=== PATIENT | female | born 1945 | race Caucasian/White ===

== ENCOUNTER → 2019-05-30 12:09 | Outpatient (CLI) | payer MEDICARE, MEDICAID, SELFPAY ==
--- NOTE | 2019-05-30 12:22 | RAD_ITS ---
STUDY: X-RAY - RIGHT KNEE REASON FOR EXAM: Increasing bilateral knee pain for years. TECHNIQUE: 4 view(s) of the knee. COMPARISON: None. FINDINGS: There is osteopenia. Normal visualized distal femur. Normal visualized proximal tibia and fibula. Normal proximal tibiofibular articulation. There is moderate joint space narrowing of the medial femorotibial compartment. There is moderately severe joint space narrowing of the lateral femorotibial compartment. There are marginal osteophytes and severe joint space narrowing of the patellofemoral articulation. There is vascular calcification. RAD/Knee 4 or More Views IMPRESSION: Tricompartmental arthrosis. Electronically Signed: Reed Miller MD at 12:53 EDT Tel , Service support ,
--- NOTE | 2019-05-30 12:23 | RAD_ITS ---
STUDY: X-RAY - LEFT KNEE REASON FOR EXAM: Increasing bilateral knee pain for years. TECHNIQUE: 4 view(s) of the knee. COMPARISON: None. FINDINGS: There is osteopenia. Normal visualized distal femur. Normal visualized proximal tibia and fibula. Normal proximal tibiofibular articulation. There is severe joint space narrowing of the medial femorotibial compartment. There is moderate joint space narrowing of the lateral femorotibial compartment. There are marginal osteophytes and severe joint space narrowing of the patellofemoral articulation. There is vascular calcification. RAD/Knee 4 or More Views IMPRESSION: Tricompartmental arthrosis. Electronically Signed: Reed Miller MD at 12:52 EDT Tel , Service support ,
== END ==
PROVIDERS: Family Provider Internal Medicine; Referring Provider Internal Medicine; Visit Provider Internal Medicine
DX: M25.561 Pain in right knee (principal); M25.562 Pain in left knee; G89.29 Other chronic pain
CPT/HCPCS: 73564

== ENCOUNTER → 2019-06-25 09:45 | Outpatient (CLI) | payer MEDICARE, SELFPAY ==
[2019-06-25 09:55] VITALS: BP 168/100; PULSE 87; RESP 18; O2SAT 18
--- NOTE | 2019-06-25 09:55 | CT_ITS ---
STUDY: CARDIAC CALCIUM SCORING - CT CHEST REASON FOR EXAM: Female, 73 years old. HLD. Family history of aneurysm. RADIATION DOSAGE (If Supplied By Facility): CTDIvol = ( 12.19 ) mGy, DLP = ( 292.55 ) mGycm TECHNIQUE: Axial non-enhanced images were acquired through the heart for the sole purpose of measuring coronary artery calcium. Individualized dose optimization techniques were used for this CT. COMPARISON: None. FINDINGS: This portion of the report is being generated solely for the evaluation of noncoronary artery structures which have been assessed on plain another report. The lungs are well expanded. There is no focal mass or infiltrate. The heart is normal in size. Normal pericardium. There coronary artery calcifications. Normal visualized mediastinum and aida. Normal visualized pulmonary arteries. There is atherosclerotic changes of the visualized thoracic aorta with mild tortuosity. There is no aneurysm. There are degenerative changes of the thoracic spine. Normal visualized upper abdomen. There is a question of a small type I hiatal hernia. CT/Limited Chest CT w/CCTA IMPRESSION: 1. Atherosclerotic changes of coronary arteries and thoracic aorta. 2. Question hiatal hernia. Electronically Signed: Tee Garcia DO at 17:22 EDT Tel [phone], Service support ,
--- NOTE | 2019-06-25 10:13 | US_ITS ---
PROCEDURES: ULTRASOUND AORTA REASON FOR EXAM: Female, 73 years old. Family history of dissecting aortic aneurysm. TECHNIQUE: Ultrasound evaluation of the aorta was performed with real-time and static rutledge-scale imaging. COMPARISON: None. FINDINGS: There is minimal plaque seen in the distal aorta. Aorta measures: Proximal 2.8 cm. Middle 2.4 cm. Distal 2.4 cm. Aorta measure transversely: Proximal 2.8 cm. Middle 2.4 cm. Distal 2.4 cm. There is normal color flow and waveform with normal velocity. Right iliac artery measures: 1.0 cm. Right iliac artery measure transversely: 1.3 cm. Left iliac artery measures: 0 point cm. Left iliac artery measure transversely: 1.3 cm. There is no demonstrated aneurysm.. US/US ABD AORTA SCREEN/AAA IMPRESSION: Mild atherosclerotic changes of the aorta without aneurysm or dissection. Electronically Signed: Tee Garcia DO at 18:28 EDT Tel [phone], Service support ,
--- NOTE | 2019-06-28 14:30 | CA.SCORE ---
Calcium Scoring Date of Study:: 06/25/19 Coronary Calcium Scoring: High-resolution Computed Tomographic imaging of the chest was performed on [ ], with particular attention paid to the coronary arteries. Images from the examination were analyzed for the presence and extent of coronary artery calcification , using coronary calcium quantification software. The patient tolerated the procedure well and there were no complications. The results of the coronary calcification analysis are provided below. - Findings Left Main (LM): 62.6 Left Anterior Descending (LAD): 230 Left Circumflex (LCX): 85.8 Right Coronary Artery (RCA): 0 Total Agatston Score: 378.4 Percentile Rankin Calcium Scoring Interpretation: 101-400 Moderate plaque burden Moderate non-obstructive coronary artery disease highly likely.
== END ==
PROVIDERS: Family Provider Internal Medicine; PCP Internal Medicine; Referring Provider Internal Medicine; Visit Provider Internal Medicine
DX: Z13.9 Encounter for screening, unspecified (principal); Z82.49 Family history of ischemic heart disease and other diseases of the circulatory system
CPT/HCPCS: 75571; 76380; 76706

== ENCOUNTER → 2019-07-11 06:27 | Outpatient (CLI) | payer MEDICARE, SELFPAY | PROVIDERS: Family Provider Internal Medicine; PCP Internal Medicine; Referring Provider Internal Medicine; Visit Provider Internal Medicine | DX: I25.10 Atherosclerotic heart disease of native coronary artery without angina pectoris (principal); R06.02 Shortness of breath; R94.30 Abnormal result of cardiovascular function study, unspecified | CPT/HCPCS: 78452; 93017; A9500; A4216; J2785 ==

== ENCOUNTER 2019-07-11 08:17 | Emergency (ER) | payer MEDICARE, SELFPAY ==
[2019-07-11 08:19] VITALS: BP 163/84; PULSE 59; RESP 12; TEMP 36.7; O2SAT 97; BMI 41.0
--- NOTE | 2019-07-11 08:44 | EKG12_ITS ---
Test Reason : PALPITATIONS Blood Pressure : / mmHG Vent. Rate : 153 BPM Atrial Rate : 375 BPM P-R Int : 000 ms QRS Dur : 080 ms QT Int : 316 ms P-R-T Axes : 000 -04 075 degrees QTc Int : 504 ms Atrial fibrillation with rapid ventricular response Nonspecific ST and T wave abnormality Abnormal ECG Confirmed by DEVONTE KENDALL, MAUREEN ([id number]), editor sound TERESO MARIO ([id number]) on 07/13/2019 10:24:52 A M Referred By: YENY/PRABHU Confirmed By:DALE WHITNEY MD
--- NOTE | 2019-07-11 08:44 | RAD_ITS ---
STUDY: X-RAY CHEST REASON FOR EXAM: Female, 74 years old. Chest pain. Hypertension. TECHNIQUE: Single AP portable view of the chest. COMPARISON: None. FINDINGS: EKG electrodes are seen. Surgical clips are seen in the right axillary region. The lungs are clear and expanded. There is no demonstrated pleural abnormality. There is moderate cardiac enlargement. Normal mediastinum and aida. Normal visualized pulmonary arteries. There is atherosclerotic calcification of the aortic arch with tortuosity. There are diffuse degenerative changes of the visualized thoracic spine. Normal visualized ribs, clavicles, and shoulders. There is no demonstrated abnormality of the visualized soft tissue structures of the upper abdomen. RAD/Chest 1 View (Portable) IMPRESSION: Cardiomegaly. Electronically Signed: Erlin Escamilla, at 9:08 EDT , Service support ,
--- NOTE | 2019-07-11 08:48 | ED.DCSUM_ITS ---
- ER Visit Summary Date of Service: 07/11/19 Chief Complaint: Recurrent aseptic History of Present Illness: The patient is a 74 F history of A. fib once in 2017. Also prior left central retinal arterial occlusion, breast CA with a right mastectomy and high cholesterol. Patient is never had an PA or cardiac stents or bypass. Today she was coming to hospital for outpatient stress test and they noticed she was in A. fib with a rapid rate and send to the ER. She did not even know she was in it. Has no idea when this began. Denies any chest pain. She does have exertional dyspnea recently. No exertional chest pain. No leg swelling. Physical Examination: Older female vital signs are stable except heart rate 159 consistent with A. fib RVR on the monitor. HEENT exam unremarkable. Neck nontender no thyromegaly. No lymphadenopathy. Lungs clear to auscultation bilaterally. Heart irregular irregular rate of about 157 on the monitor consistent with A. fib no murmur. Abdomen soft nontender normal bowel sounds no peritoneal signs. Extremities moves all 4. Calves nontender without edema or cords. Neurologically she is awake and alert. She does have decreased vision in the right eye from the prior retinal artery occlusion. She has no motor deficits. Test Results: CBC normal white count 8. Hemoglobin 17. Chemistries normal normal creatinine gap. PT/INR normal. Troponin normal at less than 0.015. TSH normal at 2. Initial EKG A. fib with rapid ventricular rate at 153. No ischemia. Chest x-ray borderline cardiomegaly otherwise no acute abnormality one view read by myself and the radiologist. Emergency Department Course and Treatment: Patient is in recurrent A. fib RVR. Currently is not on blood thinners besides a daily aspirin. She will be treated with IV Cardizem. Will most likely need to be admitted. On repeat exams patient is doing well. While getting the Cardizem IV her heart rate became a sinus rhythm rate in the 70s and 80s. She is resting comfortably without any symptoms. Treatment Plan: I spoke to Dr. Saleem Ross of cardiology. HEENT are both comfortable with patient being discharged home with outpatient follow-up in his office later this week. They are trying to set that up prior to her being discharged. I discussed all this with the patient and she is comfortable with the plan. She will remain on her current daily aspirin but no new medications. Disposition: Admission Impression: Recurrent A. fib with RVR History of high cholesterol This note was generated with [employer] dictation software. It may contain incorrect words, spelling, and punctuation that were not noted in review of the chart prior to signing ED Disposition - Plan for ED Patient: Referrals: Sugey Whaley DO [Primary Care Provider] -
[2019-07-11 08:51] LABS: Absolute Lymphocyte Count 2.36 X10^3/uL (0.83-4.51); Absolute Neutrophil Count 5.8 X10^3/uL (2.0-7.7); Basophil# 0.04 X10^3/uL; Basophil% 0.4 % (0-1); Eosinophil# 0.09 X10^3/uL; Hematocrit 53.1 % (37-47); Hemoglobin 17.5 g/dL (12.0-15.0); Lymphocyte # 2.36 X10^3/ul (4.0); Lymphocyte % 26.4 % (19-41); Mean Corpuscular Hgb 31.3 pg (27.0-32.0); Mean Corpuscular Volume 94.8 fL (81-99); Mean Platelet Vol. 9.9 fl (6.2-12.0); Monocyte# 0.64 X10^3/uL; Monocyte% 7.2 % (0-10); NRBC Flagged by Analyzer 0 % (0-5); Neutrophil # 5.75 X10^3/uL (2.7-7.7); Neutrophil % 64.4 % (47-70); Platelet Count 168 K/mm3 (150-450); RBC Distribution Width CV 14.1 % (11.6-14.6); RBC Distribution Width SD 49.4 fl (35.1-43.9); White Blood Count 8.9 K/mm3 (4.4-11.0)
[2019-07-11] MEDS: dilTIAZem 25 MG/5 ML Vial IV BOLUS (08:53)
[2019-07-11 09:06] LABS: International Normalized Ratio 1.1; Prothrombin Time (Protime)PT. 13.6 SECONDS (11.7-14.9)
[2019-07-11 09:19] LABS: Anion Gap 7 (5-15); BUN 17 mg/dL (7-18); BUN/Creat Ratio 16.2 RATIO (10-20); Calcium,Total 9.3 mg/dL (8.5-10.1); Chloride 106 mmol/L (98-107); Creatinine, Serum 1.05 mg/dL (0.55-1.02); EST Glomerular Filtration Rate 55 mL/min (>60); Est Glom Filt Rate - Afr Amer 66 mL/min (>60); Estimated Creatinine Clearance 48.14 ml/min; Glucose 115 mg/dL (74-106); Potassium 4.2 mmol/L (3.5-5.1); Sodium Level 140 mmol/L (136-145); Thyroid Stim Hormone (TSH) 2.06 uIU/mL (0.358-3.74)
--- NOTE | 2019-07-11 09:56 | ED.DEP ---
ED Disposition - Plan for ED Patient: Disposition: Home or Assisted Living Instructions: Atrial Fibrillation Referrals: Saleem Ross MD [STAFF PHYSICIAN] - As soon as possible Additional Instructions: Follow-up with Dr. Saleem Ross's office later this week. Return to the ER if you are feeling worse or if your heart rate becomes accelerated again. Continue your daily aspirin.
[2019-07-11 10:22] VITALS: BP 141/79; PULSE 82; RESP 16; O2SAT 97
== END 2019-07-11 10:22 | disposition home or self-care (01) ==
PROVIDERS: Emergency Provider Emergency Medicine; Family Provider Internal Medicine; PCP Internal Medicine
DX: I48.91 Unspecified atrial fibrillation (principal); E78.00 Pure hypercholesterolemia, unspecified; I25.10 Atherosclerotic heart disease of native coronary artery without angina pectoris; R06.02 Shortness of breath; R94.30 Abnormal result of cardiovascular function study, unspecified; H54.61 Unqualified visual loss, right eye, normal vision left eye; Z79.01 Long term (current) use of anticoagulants; Z79.899 Other long term (current) drug therapy; Z85.3 Personal history of malignant neoplasm of breast; Z90.11 Acquired absence of right breast and nipple
CPT/HCPCS: 71045; 78452; 80048; 84443; 84484; 85025; 85610; 93005; 93017; 96374; 99284; A9500; A4216

== ENCOUNTER → 2019-08-08 12:36 | Outpatient (CLI) | payer MEDICARE, SELFPAY ==
[2019-07-13 11:03] VITALS: BMI 41.0
--- NOTE | 2019-08-08 12:38 | ECHOD_ITS ---
Reason For Study: AFIB/FLUTTER Procedure This was a 2D Doppler, Color Flow transthoracic echocardiogram. The study was technically difficult. Due to body habitus. Exam performed in department. Left Ventricle Normal LV size. Left ventricular systolic function is normal. The estimated ejection fraction is 65 %. Stage 1 diastolic dysfunction. No regional wall motion abnormalities noted. Right Ventricle Normal RV size. Normal systolic function. Atria The left atrium is mildly enlarged. Normal right atrium. Mitral Valve Normal mitral valve. Tricuspid Valve Normal tricuspid valve. Aortic Valve The aortic valve is not well visualized. Pulmonic Valve Normal pulmonic valve. Great Vessels Normal aortic root. The pulmonary artery is normal size. Pericardium/Pleural No pericardial effusion. MMode/2D Measurements & Calculations LVIDd: 4.9 cm IVSd: 1.2 cm LVOT diam: 2.3 cm LVIDs: 3.5 cm LVPWd: 1.1 cm LVOT area: 4.3 cm2 RVDd: 3.3 cm FS: 29.3 % Ao root diam: 4.2 cm LAV(MOD-bp): 77.0 ml LA A4 area: 23.0 cm2 LAV(MOD-bp) Indexed: 31.7 ml/m2 LAV(MOD-sp2): 75.7 ml LAV(MOD-sp4): 75.7 ml LA dimension(2D): 4.1 cm RA A4 area: 19.3 cm2 Time Measurements MV dec time: 0.26 sec Doppler Measurements & Calculations MV E max sean: 51.4 cm/sec Lat Peak E' Sean: 7.6 cm/sec Med Peak E' Sean: 4.6 cm/sec MV A max sean: 93.3 cm/sec E/E' lat: 6.8 E/E' med: 11.2 MV E/A: 0.55 Ao V2 max: 102.5 cm/sec LV V1 max: 87.9 cm/sec PA V2 max: 93.8 cm/sec Ao max P.2 mmHg LV V1 max P.1 mmHg LEFTY(V,D): 3.7 cm2 TR max sean: 199.2 cm/sec TR max P.5 mmHg Interpretation Summary Normal LV size. Left ventricular systolic function is normal. The estimated ejection fraction is 65 %. Stage 1 diastolic dysfunction. The left atrium is mildly enlarged. The global longitudinal strain = -17.4 % (normal). Ordering Physician: Saleem Ross Referring Physician: Sugey Whaley Performed By: Sammi Schwarz, GUERDA, RVT
== END ==
PROVIDERS: Family Provider Internal Medicine; PCP Internal Medicine; Referring Provider Internal Medicine Cardiovascular Disease; Visit Provider Internal Medicine Cardiovascular Disease
DX: I48.0 Paroxysmal atrial fibrillation (principal)
CPT/HCPCS: 93306

== ENCOUNTER → 2019-08-16 14:03 | Outpatient (CLI) | payer MEDICARE, SELFPAY ==
[2019-07-13 11:03] VITALS: BMI 41.0
[2019-08-16 10:35] VITALS: BMI 40.4
--- NOTE | 2019-08-16 14:04 | BI_ITS ---
MAMMOGRAPHY - UNILATERAL SCREENING: LEFT BREAST REASON FOR EXAM: Female, 74 years old. Routine annual screening examination (unilateral). PERTINENT HISTORY: Personal history of breast cancer. Prior right mastectomy with right breast TRAM flap reconstruction. TECHNIQUE: Digital unilateral breast sara (3D mammographic acquisition) in the CC and MLO projections. 2-D mediolateral oblique (MLO) and craniocaudad (CC) views of both breasts were obtained. CAD: Full Field Digital Mammography with Computer Added Detection was performed. COMPARISON: Comparison is made with prior outside examination of January 20, 2008. FINDINGS: Breast Composition: There are scattered areas of fibroglandular density. There are no dominant masses or suspicious calcifications. Stable benign-appearing 4.5 mm well-defined nodule in the axillary region of the left breast most likely representing a small lymph node. No other significant abnormalities are identified. There has been no significant change since the prior study. BI/SCREEN MAMM (CAD) W/SARA UNI L IMPRESSION: Stable unilateral screening mammogram. Yearly follow-up mammogram recommended. (A) ASSESSMENT CATEGORY: BIRADS Category 2: Benign. A letter regarding these results will be sent to the patient by the facility within 30 days. Approximately 10% of breast cancers are not detected by mammography. A normal mammogram should not delay biopsy of a clinically suspicious abnormality. [id number] Electronically Signed: Erlin Escamilla, at 15:33 EDT , Service support ,
--- NOTE | 2019-08-16 14:48 | BD_ITS ---
STUDY: DUAL ENERGY X-RAY ABSORPTIOMETRY / DXA REASON FOR EXAM: Female, 74 years old. Early menopause. History of breast cancer. Loss of height. TECHNIQUE: Bone Mineral Density (BMD) measurements of lumbar spine and left forearm were obtained. COMPARISON: None. FINDINGS: Lumbar Spine (L1-L4): g/cm2 (1.316) / T-score (1.1) / Z-score (2.9) Findings are suggestive of normal bone density with a low fracture risk. Left Forearm: g/cm2 (0.999) / T-score (1.4) / Z-score (3.5) BD/Dexa Bone Density Study IMPRESSION: The patient is considered normal as outlined below according to World Ayo Organization (WHO) criteria with a low fracture risk. Reference Information: The T-score is the number of standard deviations above or below the standard which is normal for young adults at their peak bone mineral density. The World Health Organization (WHO) interprets the T-scores as follows: Above -1 Normal bone density Between -1 and -2.5 Osteopenia Equal to / or below -2.5 Osteoporosis As a practical clinical guideline, osteopenia may be graded as follows: Mild -1 through -1.5 Moderate -1.6 through -2.0 Severe -2.1 through -2.4 The Z-score is the number of standard deviations above or below age-matched controls. A Z-score of less than -1.5 would be considered abnormal. References: 1. NIH Osteoporosis and Related Bone Diseases http://www.osteo.org 2. International Society for Clinical Densitometry http://www.iscd.org 3. National Osteoporosis Foundation http://www.nof.org Electronically Signed: Erlin Escamilla, at 12:53 EDT , Service support ,
== END ==
PROVIDERS: Family Provider Internal Medicine; PCP Internal Medicine; Referring Provider Internal Medicine; Visit Provider Internal Medicine
DX: Z12.31 Encounter for screening mammogram for malignant neoplasm of breast (principal); Z78.0 Asymptomatic menopausal state; Z85.3 Personal history of malignant neoplasm of breast; Z90.11 Acquired absence of right breast and nipple
CPT/HCPCS: 77061; 77063; 77067; 77080; G0279

== ENCOUNTER 2019-09-25 13:35 | Outpatient (RCR) | payer MEDICARE, SELFPAY ==
[2019-08-16 10:35] VITALS: BMI 40.4
--- NOTE | 2019-09-27 14:26 | HP.OTEVAL ---
Patient's Visit Information ALEX TUCKER is a 74 year old F, referred to Occupational Therapy by Sugey Whaley DO, with a diagnosis of right UE lymphedema. Date of Evaluation: 09/25/19 Occupational Therapist: Jaycee Washburn, MAHNAZ/Kylah, CHT - Subjective Subjective: This 74 year old female was seen for OT eval with dx of right UE lymphedema. pt states in 1987 22 lymph nodes were removed. Pt states pt had numbness tingilin started in fingers in 2018- went to accupucturist and he helped aleviate numbness in IF and thumb. Pt states she was told at that time the numbness in her other fingers was from a nerve in her elbow. pt states no change in numbness. pt states in 2012 she had right side reconstruction- pt states her hand has been feeling right LF RF and MF were numb- pts states she use a old compression sleeve - Lymphedema (Circumferential Measure) MCP: right 20cm left 20cm Wrist: right 18cm left 17.5 Lower forearm: right 17cm left 15cm Largest forearm: right 32cm left 31cm Elbow: right 32.5cm left 30cm Largest humerus: right 43cm left 40cm Axcillary: right 43cm left 42cm - Sensation Thumb: right 2.83 left 2.83 Index: right 2.83 left 2.83 Middle: right 2.83 left 2.83 Ring: right 2.83 left 2.83 Little: right 2.83 left 2.83 - Goals Demonstrate adequate knowledge skin care/prec by 2nd week: Yes Demonstrate adequate knowledge therapeutic exercises by d/c: Yes Select approp compression garment w/donning/care/wear by d/c: Yes Voice need to replace compression garment every 4-6mo by dc: Yes - Rehabilitation General Assessment: Pt demo with lymphedema of right UE and need of skilled OT services 2-3 visits to ed. pt on mtg of lymphedema and care. Today pt was ed, on use of compression sleeve 20-30 mmHg, lymph system and beneficial ex. pt demo understanding and is to return for further training once she has her compression sleeve. Therapist will also ensure proper fit and donning/doffing celso. Pt agree to POC. Rehabilitation Potential: Good - Anticipated Interventions Anticipated Interventions: Education re Life-long lymphedema Management, Education re Skin Care and Precautions, Education re Correct Donning Tech,Care&Wearing Sched Comp Garments, Home Program - Visit Plan TEXT: Thank you for the opportunity to evaluate your patient. For Medicare and Medicare HMO plans, please review the plan of care and approve it. It will need to be FAXED BACK to us at [phone] for Medicare purposes. Please let me know if there are questions or concerns regarding this plan of care. Physician Signature: Date:
--- NOTE | 2019-12-03 17:12 | HP.OTDCNRP_ITS ---
HP - Discharge Summary - Patient Information ALEX TUCKER was seen in my office for initial evaluation on 09/25/19. The following Plan of Care was established for this patient: - Anticipated Interventions Anticipated Interventions: Education re Life-long lymphedema Management, Educa tion re Skin Care and Precautions, Education re Correct Donning Tech,Care&Wearing Sched Comp Garments, Home Program This patient was last seen in our office 09/25/19. Pertinent comments regarding their Occupational therapy will appear below: Pt was seen for eval only. pt has not scheduled any further apts. Due to time lapse in care pt d/c at this time. At this point I will be discontinuing this patient from occupational therapy. I would be happy to see this patient again in the future if found appropriate by the physician. Thank you! Jaycee Washburn, OTR/L, CHT
== END 2019-09-25 19:00 | disposition home or self-care (01) ==
LOC: OT 13:35
PROVIDERS: Family Provider Internal Medicine; PCP Internal Medicine; Referring Provider Internal Medicine; Visit Provider Internal Medicine
DX: I89.0 Lymphedema, not elsewhere classified (principal)
CPT/HCPCS: 97166

== ENCOUNTER → 2020-05-12 12:12 | Outpatient (CLI) | payer MEDICARE, SELFPAY ==
[2019-08-16 10:35] VITALS: BMI 40.4
--- NOTE | 2020-05-12 12:16 | RAD_ITS ---
STUDY: X-RAY - LUMBAR SPINE REASON FOR EXAM: Female, 74 years old. lumbar radiculopathy TECHNIQUE: 5 view(s) of the lumbar spine were obtained. COMPARISON: None FINDINGS: Normal lumbar lordosis. There is no substantial scoliosis. There is a normal alignment of the vertebrae. There is multilevel endplate spondylosis of the lumbar vertebrae. There is multi-level degenerative disc disease with multi-level disc space narrowing. The soft tissue structures are unremarkable. RAD/L/S Spine Min 4 Views IMPRESSION: Moderate spondylosis and degenerative disc disease Electronically Signed: Fritz Roblero MD at 22:12 EDT , Service support ,
== END ==
LOC: HPRAD 12:13 → MTRAD 12:54
PROVIDERS: PCP Internal Medicine; Referring Provider Internal Medicine; Visit Provider Internal Medicine
DX: M54.16 Radiculopathy, lumbar region (principal)
CPT/HCPCS: 72110